=== PATIENT | female | born 1945 | race Caucasian/White ===

== ENCOUNTER → 2017-01-26 | Outpatient (CLI) | payer MEDICARE, OTHER ==
[~2017-01-26] MED LIST: ALDACTONE DPS25 MG PO; AMARYL2 MG PO; AMBIEN DPS10 MG PO; ASA CHILDREN'S81 MG PO; CARVEDILOL25 MG PO; DAILY MULTIPLE1 EAC1 PO; DULCOLAX-DPS5 MG PO; ELIQUIS2.5 MG PO; FERROUS SULFAT325 MG PO; MIRALAX PACKET17 GM PO; NORVASC5 MG PO; OXY IR DPS5 MG PO; SENOKOT S1 TAB PO; TYLENOL DPS325 MG PO; ULTRAM DPS50 MG PO; VITAMIN D35000 UNI1 PO; XARELTO10 MG PO; ZESTRIL DPS40 MG PO
== END | disposition home or self-care (01) ==
LOC: PTH.S 07:51
DX: Z01.818 Encounter for other preprocedural examination (principal)

== ENCOUNTER 2017-02-09 05:29 | Inpatient (IN) | payer MEDICARE, OTHER ==
[~2017-02-09] VITALS: Ht 152.4 cm; Wt 94.7 kg
--- NOTE | ~2017-02-09 | OR ---
ADMIT: 02/09/2017 RM/LOC: 504 [facility] MR#: [id number] [address] [place] [address] Operative/Delivery Room Report SEX: F AGE: 71 : 1945 SURGERY DATE: 02/09/2017 SURGEON: Butch Pastor MD PURCHASING OFFICER: 1. Johan Nuñez PA-C. 2. ORACIO Narayanan. PREOPERATIVE DIAGNOSES: 1. Right hip degenerative joint disease. 2. Morbid obesity. POSTOPERATIVE DIAGNOSES: 1. Right hip degenerative joint disease. 2. Morbid obesity. PROCEDURES: 1. Right anterior total hip arthroplasty. 2. Intra-articular Exparel block. ANESTHESIA: Spinal. COMPLICATIONS: None. ESTIMATED BLOOD LOSS: 200 mL. COMPONENTS: 1. A 48 mm Gription pinnacle cup. 2. A neutral 32 mm AltrX liner. 3. Hole eliminator and acetabular screw. 4. A size 5 high-offset [place] stem. 5. A 1.5 x 32 mm metal head. DESCRIPTION OF PROCEDURE: The patient was taken to the operative room, received a spinal anesthetic, placed in lateral decubitus position. The right hip was prepped and draped in a standard fashion. She is morbidly obese and we had to use deep retractors throughout the case using extra assistance due to the obesity. Posterior approach was performed. Dissection was carried to subcutaneous tissue. We identified the tensor fascia and divided in the gluteus teresa. At that point, we placed deep retractors. Identified the piriformis tendon, released the piriformis tendon and capsule and external rotators and one capsular flap. At that point, we were able to dislocate the hip. We opened up the piriformis fossa with a reamer, reamed up to a size 5, made a preliminary femoral neck cut based on templating. At that point, we then sequentially broached up to a size 5, left the broach in the canal to protect it , used a calcar planer to smooth off the neck. At that point, we exposed the acetabulum, removed the remaining labrum. Under direct visualization, we then sequentially reamed the acetabulum up to a 47 mm reamer, elected to use a 48 mm Gription pinnacle cup, we impacted this in ADMIT: 02/09/2017 RM/LOC: 504 [facility] MR#: [id number] [id number] [address] [place] [facility] [place] [address] Operative/Delivery Room Report SEX: F AGE: 71 : 1945 appropriate position using internal landmarks for cup positioning. At that point, placed one acetabular screw for supplemental fixation. We then put in a trial 32 mm liner, reduced the hip. We had appropriate leg length, good offset, good stability and flexion, no impingement. At that point, we dislocated the hip, removed all trial components, placed a hole eliminator, put in the real 32 mm AltrX liner, did a block with Exparel around the acetabulum. We then re-exposed the femur, removed the trial broach. We then impacted a 5 high-offset [place] stem, put on a 32 x 1.5 head. Again, reduced the hip, it was again found to be stable. At that point, completed our Exparel block. We repaired the posterior capsular structures with #5 Tycron and interrupted 0 Vicryl, closed the tensor fascia with one interrupted #5 Ethibond followed by a running interrupted 0 Vicryl suture. All the adipose tissues closed with 2-0 Vicryl, subcutaneous with 2-0 Vicryl, placed her Prineo hip wound dressing on this incision. She was taken to recovery room in stable condition. No complications. Butch Pastor MD/ edna JOB #: [id number] CC: Butch Pastor, Attending Physician Vasu Azevedo, Family Physician
[~2017-02-09 05:29] MED LIST changes: -ALDACTONE DPS25 MG PO; -DAILY MULTIPLE1 EAC1 PO; -MIRALAX PACKET17 GM PO; -OXY IR DPS5 MG PO; -XARELTO10 MG PO
[2017-02-12] MEDS ORDERED: ALDACTONE DPS25 MG PO (12:48)
[2017-02-12] MEDS ORDERED: DAILY MULTIPLE1 EAC1 PO (12:53)
[2017-02-12] MEDS ORDERED: MIRALAX PACKET17 GM PO (12:54)
[2017-02-12] MEDS ORDERED: XARELTO10 MG PO (12:55)
[2017-02-12] MEDS ORDERED: OXY IR DPS5 MG PO (12:57)
--- NOTE | 2017-02-14 08:30 | HP ---
ADMIT: 02/09/2017 RM/LOC: W.01 [facility] MR#: [id number] [address] [place] [address] [place] [address] Pre-OP History and Physical SEX: F AGE: 71 : 1945 DATE OF SERVICE: CHIEF COMPLAINT: Hip pain. HISTORY OF PRESENT ILLNESS: The patient is a 71-year-old female with long- standing history of right hip pain. The right hip pain is limiting her activity. She has had prior left hip replacement with good results. She has now failed conservative care, now being admitted for right total hip arthroplasty. PAST MEDICAL PROBLEMS: Include hypertension, coronary artery disease, diabetes, history of uterine cancer, and history of DVT. MEDICATIONS: Include: 1. Iron. 2. Tramadol. 3. Multivitamins. 4. Aspirin. 5. Hydrochlorothiazide. 6. Lisinopril. 7. Carvedilol. 8. Glyburide. 9. Amlodipine. 10.Zolpidem. ALLERGIES: NONE. SOCIAL HISTORY: Denies any tobacco or alcohol use. REVIEW OF SYSTEMS: Negative. PHYSICAL EXAMINATION: Morbidly obese female. She has pain with any motion of the right hip. We can internally rotate to 10 degrees, externally rotate to 30 degrees, flex to 100. Legs otherwise neurovascularly intact. ADMIT: 02/09/2017 RM/LOC: W.01 [facility] MR#: [id number] [address] [place] [address] [place] [address] Pre-OP History and Physical SEX: F AGE: 71 : 1945 DIAGNOSTIC DATA: X-rays AP and lateral show advanced right hip arthritis, no joint space remaining. IMPRESSION: 1. Advanced right hip degenerative joint disease. 2. Diabetes. 3. Morbid obesity. PLAN: We talked about different options. Failed conservative care. Plan on doing a right standard total hip arthroplasty. She is aware of the risks, benefits, and options and agreed to proceed. She has been seen and cleared from a medical standpoint. Butch Pastor MD/ edna JOB #: [id number] CC: Butch Pastor, Attending Physician Vasu Azevedo, Family Physician
--- NOTE | 2017-02-17 14:15 | DS ---
ADMIT: 02/09/2017 RM/LOC: 504 [facility] MR#: [id number] [facility]#: [id number] [id number] [address] [place] [address] General Discharge Summary SEX: F AGE: 71 : 1945 ADMISSION DATE: 02/09/2017 DISCHARGE DATE: 02/11/2017 REASON FOR ADMISSION: Elective right total hip arthroplasty after failing conservative care. PREOPERATIVE DIAGNOSES: 1. Right hip degenerative joint disease. 2. Morbid obesity. POSTOPERATIVE DIAGNOSES: 1. Right hip degenerative joint disease. 2. Morbid obesity. PROCEDURE PERFORMED: Right anterior total hip arthroplasty. SURGEON: Dr. Butch Pastor. ENGINEER TECHNICAL STAFF: 1. Johan Nuñez PA-C. 2. ORACIO Devlin. ANESTHESIA: Spinal. COMPLICATIONS: None. ESTIMATED BLOOD LOSS: 200 mL. ACTIVE MEDICAL PROBLEMS: 1. Hypertension. 2. Coronary artery disease. 3. Diabetes. 4. History of uterine cancer. 5. History of DVT. HOSPITAL COURSE: The patient was admitted on 02/09/2017 for elective right total hip arthroplasty done successfully without any complications by Dr. Renny Pastor. The patient tolerated the procedure well. Postoperatively, she did well with pain control with the use of intraoperative Exparel and postoperative oral analgesics. She did suffer from some mild acute blood loss anemia. Her hemoglobin dropped to 9.4 on 02/11/2017, but she remained hemodynamically stable and did not require blood transfusion. By postoperative day #2, she was safe and participated well with physical therapy. She was stable and ready for discharge home with plans for physical therapy exercises at home. DISCHARGE MEDICATIONS: 1. Spironolactone 25 mg everyday. 2. Carvedilol 25 mg twice daily. ADMIT: 02/09/2017 RM/LOC: 504 [facility] MR#: [id number] [id number] [address] [place] [address] General Discharge Summary SEX: F AGE: 71 : 1945 3. Glimepiride 2 mg twice daily. 4. Zolpidem 10 mg at bedtime. 5. Ferrous sulfate 65 mg everyday. 6. Multivitamin everyday. 7. Aspirin 81 mg everyday. 8. MiraLax 17 g everyday. 9. Senokot two tablets every day. 10.Tylenol 650 mg every 6 hours as needed. 11.Ultram 50 mg one to two tablets every 6 hours as needed. 12.Xarelto 10 mg everyday for 32 days. 13.Oxycodone IR 5 mg one to two tablets every 4 hours as needed for breakthrough pain. DISCHARGE INSTRUCTIONS: The patient was discharged home with plans for at home physical therapy exercises per total hip arthroplasty protocol. Follow up in the Orthopedic office in 2 weeks for wound check, in six weeks with x- ray, follow up with primary care as directed. ORACIO Devlin / Butch Pastor MD / edna JOB #: [id number] CC: Butch Pastor MD, Attending Physician Vasu Azevedo MD, Family Physician
== END 2017-02-11 14:00 | disposition home or self-care (01) | DRG 470 ==
LOC: WOR 05:29 → 5MS 05:29
PROVIDERS: ADMIT Orthopaedic Surgery
PROC: 0SR902Z Replacement of Right Hip Joint with Metal on Polyethylene Synthetic Substitute, Open Approach (ICD-10-PCS; principal; 2017-02-09)
DX: M16.11 Unilateral primary osteoarthritis, right hip (principal); E11.9 Type 2 diabetes mellitus without complications; E66.9 Obesity, unspecified; I50.22 Chronic systolic (congestive) heart failure; I11.0 Hypertensive heart disease with heart failure; D64.9 Anemia, unspecified; D62 Acute posthemorrhagic anemia; I25.2 Old myocardial infarction; I25.10 Atherosclerotic heart disease of native coronary artery without angina pectoris; Z85.42 Personal history of malignant neoplasm of other parts of uterus; Z86.718 Personal history of other venous thrombosis and embolism; Z96.642 Presence of left artificial hip joint; Z79.82 Long term (current) use of aspirin; Z68.38 Body mass index [BMI] 38.0-38.9, adult